=== PATIENT | female | born 1955 | race Caucasian/White ===

== ENCOUNTER 2019-04-10 05:23 | Emergency (ER) | payer OTHER, SELFPAY ==
--- NOTE | 2019-04-10 05:34 | ED_ITS ---
HPI - General Adult General Chief complaint: Wound/Laceration Stated complaint: left thumb laceration Time Seen by Provider: 04/10/19 05:25 Source: patient Mode of arrival: Ambulatory Limitations: no limitations History of Present Illness HPI narrative: 64-year-old female here for evaluation of a cut on the back of her left thumb. States that just prior to arrival she cut it on a serrated edge to a Saran wrap container. Bleeding immediately afterwards. Last tetanus shot was within the past 10 years. Related Data Home Medications Medication Instructions Recorded Confirmed levothyroxine [Synthroid] 25 mcg PO QDAY@0600 #0 01/08/12 Allergies Allergy/AdvReac Type Severity Reaction Status Date / Time PENICILLIN Allergy Unknown Uncoded 10/26/17 12:14 SULFA Allergy Unknown Uncoded 10/26/17 12:14 Review of Systems Musculoskeletal Musculoskeletal: Denies tingling Integumentary/Breasts Comments: Cut to the back of the left thumb Neurologic Neurologic: Denies tingling and Denies paresthesias Hematologic/Lymphatic Hematologic/Lymphatic: Denies easy bleeding and Denies easy bruising [facility] Medical History Hypothyroid (Acute) Social History Smoking Status: Never smoker Social History Smoking Status: Never smoker Exam Initial Vital Signs Initial Vital Signs: Vital Signs Temperature 98.5 F 04/10/19 05:41 Pulse Rate 61 04/10/19 05:41 Respiratory Rate 14 04/10/19 05:41 Blood Pressure 122/58 L 04/10/19 05:41 Pulse Oximetry 99 04/10/19 05:41 Cardio Pulses: radial pulses present on the left Skin Other: 2 cm laceration on the dorsum of the left thumb just proximal to the IP joint. Neuro Sensory Exam: no sensory deficits noted Extrem Other: Full range of motion of the MCP and IP joint to the left thumb Psych Appearance: grossly normal and well kempt Procedures Laceration Repair Laceration 1: Site: other (Left thumb) Side (If applicable): left Size (cm): 2 Description: linear and clean Depth: simple, single layer Local Anesthetic: lidocaine 1% Amount of anesthesia used (mL): 3 Pre-repair: wound explored, irrigated extensively and deep structures intact Skin layer closed with: nylon Size (cm): 4-0 Number of sutures: 3 Technique: simple, interrupted Orthopedic Splinting/Casting Injury #1: Side: left Upper Extremity Injury Location: finger (Thumb) Upper Extremity Immobilizer: finger (other) Post splinting neuro exam: intact Post splinting vascular exam: intact Placed by: Nursing Course Orders Ordered: Discontinued Medications Bacitracin (Bacitracin) 1 applic TOP NOW ONE Stop: 04/10/19 05:59 Lidocaine HCl (Xylocaine 1% (Pf)) 4 ml INJ NOW ONE Stop: 04/10/19 05:41 Vital Signs Vital signs: Vital Signs - 8 hr 04/10/19 05:41 Temperature 98.5 F Pulse Rate 61 Respiratory Rate 14 Blood Pressure 122/58 L Pulse Oximetry 99 Medical Decision Making MDM Narrative Medical decision making narrative: Neurovascular intact, up-to-date on tetanus, irrigated, no deep structure involvement, closed as described above, splint placed for comfort, given care instructions and return precautions. She expressed understanding and agreement with plan. Discharge Plan Departure Patient Disposition: Home Clinical Impression: Laceration Instructions: DI for Laceration Repair Activity Restrictions/Additional Instructions: I would leave the bandage on for the next 24 hours. The splint is for your comfort. After 24 hours you can wash your hand like normal. You can use soap and water like normal. The stitches do need to be removed in 7-10 days. Return to the emergency department for any new or worsening symptoms Prescriptions: No Action levothyroxine [Synthroid] 25 MCG tablet 25 mcg PO QDAY@0600 Qty: 0 RF: 0 Referrals: Renata Manzo MD [Primary Care Provider] -
[2019-04-10 05:41] VITALS: BP 122/58; PULSE 61; RESP 14; TEMP 36.9; O2SAT 99; BMI 22.3
[2019-04-10] MEDS: LIDOCAINE 1% (PF) 4 ML INJ (05:59)
[2019-04-10] MEDS: BACITRACIN OINT 0.9 GM PCKT 1 APPLIC TOP (06:01)
--- NOTE | 2019-04-10 06:14 | PC.NURSE ---
formable metal splint applied to left thumb to immobilize. Bacitracin and telfa placed on wound with three stitches placed by provider.
== END 2019-04-10 06:17 | disposition home or self-care (01) ==
PROVIDERS: Emergency Provider Emergency Medicine; PCP Internal Medicine
DX: S61.012A Laceration without foreign body of left thumb without damage to nail, initial encounter (principal); W26.8XXA Contact with other sharp object(s), not elsewhere classified, initial encounter
CPT/HCPCS: 12001; 29130; 99283

== ENCOUNTER 2021-07-17 12:35 | Emergency (ER) | payer OTHER, SELFPAY ==
[2021-07-17 12:40] VITALS: BP 174/79; PULSE 60; RESP 14; TEMP 36.8; O2SAT 99; BMI 22.3
[2021-07-17 13:00] LABS: COVID19 -Nasal RAPID POSITIVE (Negative)
--- NOTE | 2021-07-17 14:45 | ED.URI ---
HPI - URI/Sore Throat <DAGMAR Oquendo - Last Filed: 07/17/21 14:52> General Chief Complaint: Upper Respiratory Symptoms Stated Complaint: Wants COVID Test, Headache/Cough Time Seen by Provider: 07/17/21 14:37 Source: patient Mode of arrival: Ambulatory History of Present Illness HPI Narrative: 66-year-old female presents to the emergency department with 4 days of headache, congestion, cough, sneezing, fatigue and concern for COVID. Patient reports that she was likely exposed to Covid on 6 days ago, and her daughter tested positive yesterday. Patient received her [employer] vaccination approximately 6 months ago. She endorses that she went to work couple days ago but wore a mask the whole time. Patient denies any nausea vomiting, shortness of breath, difficulty breathing, wheezing, muscle aches, loss of sense of smell or taste, or any other symptoms. Related Data Home Medications Medication Instructions Recorded Confirmed levothyroxine 25 mcg tablet 25 mcg PO QDAY@0600 #0 01/08/12 (Synthroid) Allergies Allergy/AdvReac Type Severity Reaction Status Date / Time Penicillins Allergy Intermediate Chills Verified 07/17/21 12:44 Sulfa (Sulfonamide Allergy Intermediate Chills Verified 07/17/21 12:44 Antibiotics) Review of Systems <DAGMAR Oquendo - Last Filed: 07/17/21 14:52> Review of Systems Narrative: General: denies fever, chills, dizziness Head/Neck: Endorses headache, denies neck pain Eyes: denies visual changes, eye pain Cardio: denies chest pain, palpitations Respiratory: denies shortness of breath or wheezing, endorses cough, sneezing, congestion GI: denies abdominal pain, nausea, vomiting, or diarrhea : denies dysuria, hematuria MSK: denies joint pain, muscle weakness, denies muscle aches Skin: denies rash, itching Neuro: denies numbness, tingling Patient History <DAGMAR Oquendo - Last Filed: 07/17/21 14:52> Medical History Hypothyroid Social History Smoking Status: Never smoker Smoking Status: Never smoker alcohol intake frequency: 0-2 drinks per day Substance Use Type: marijuana Exam <DAGMAR Oquendo - Last Filed: 07/17/21 14:52> Narrative Exam Narrative: Independently reviewed vitals signs and nursing notes. General: Awake, alert, nontoxic, no cardiorespiratory distress Head/Neck: Atraumatic, neck full range of motion Eyes: EOMI, conjunctiva normal Nose: nares patent, no rhinorrhea Mouth/Throat: moist mucus membranes, no oral lesions Cardio: Regular rate and rhythm, no peripheral edema Respiratory: respirations unlabored without wheezing, stridor, or rales. No retractions. No hypoxia GI: Abdomen soft, nontender MSK: Moves all extremities, neurovascularly intact Skin: Normal capillary refill, no rash Neuro: Normal speech and cognition, normal gait Initial Vital Signs Initial Vital Signs: Vital Signs Temperature 98.3 F 07/17/21 12:40 Pulse Rate 60 07/17/21 12:40 Respiratory Rate 14 07/17/21 12:40 Blood Pressure 174/79 H 07/17/21 12:40 Pulse Oximetry 99 07/17/21 12:40 <Ara Parra DO - Last Filed: 07/19/21 14:51> Initial Vital Signs Initial Vital Signs: Vital Signs Temperature 98.3 F 07/17/21 12:40 Pulse Rate 60 07/17/21 12:40 Respiratory Rate 14 07/17/21 12:40 Blood Pressure 174/79 H 07/17/21 12:40 Pulse Oximetry 99 07/17/21 12:40 Course <DAGMAR Oquendo - Last Filed: 07/17/21 14:52> Orders Ordered: ED Orders 07/17/21 12:46 COVID19 -Nasal swab/Pre-Proc Stat Vital Signs Vital signs: Vital Signs - 8 hr 07/17/21 12:40 Temperature 98.3 F Pulse Rate 60 Respiratory Rate 14 Blood Pressure 174/79 H Pulse Oximetry 99 <Ara Parra DO - Last Filed: 07/19/21 14:51> Orders Ordered: ED Orders 07/17/21 12:46 COVID19 -Nasal swab/Pre-Proc Stat Vital Signs Vital signs: Vital Signs - 8 hr 07/17/21 12:40 Temperature 98.3 F Pulse Rate 60 Respiratory Rate 14 Blood Pressure 174/79 H Pulse Oximetry 99 MDM - URI/Sore Throat <DAGMAR Oquendo - Last Filed: 07/17/21 14:52> Lab Data Labs: Lab Results 07/17/21 Range/Units 12:46 SARS-CoV-2 (PCR) Positive H (Negative) MDM Narrative Medical decision making narrative: 66-year-old female otherwise healthy presents to the emergency department seeking a COVID test for known exposure on and symptoms which started 4 days ago including headache, congestion, cough, and fatigue. Patient's COVID test was positive. Her breath sounds were clear, she was not in any respiratory distress, pulse oximetry read 99-100%, no tachypnea, no adventitious breath sounds. Patient is vaccinated with [employer] vaccination as of January 2021. She has not had a booster. Patient understands to come back to the emergency department she has any worsening of her breathing, she was updated on the latest CDC guidelines and understands to follow-up with her primary care provider. Patient is appropriate and amenable to discharge home. Vital signs are stable on repeat examination is unremarkable. Patient has been informed of results. Patient has been given strict return to ER precautions for any new or worsening symptoms. Patient understands to follow up closely with outpatient providers as instructed. Patient understands plan and agrees to discharge home. All questions and concerns answered at this time. <Ara Parra DO - Last Filed: 07/19/21 14:51> Lab Data Labs: Lab Results 07/17/21 Range/Units 12:46 SARS-CoV-2 (PCR) Positive H (Negative) Discharge Plan Departure Patient Disposition: Home Clinical Impression: COVID-19, Upper respiratory infection Instructions: DI for COVID-19 (Suspected or Confirmed ) Activity Restrictions/Additional Instructions: Bianca, it was nice to meet you, sorry that your COVID test is positive. Please continue to wear mask for lungs you have symptoms and isolate yourself from others at least through tomorrow. I do recommend getting a booster vaccination in a couple of months, hopefully this will give you some added immunity against getting very sick if you were to get it again. Supportive care is the best he can do at home, Tylenol or ibuprofen is acceptable if you tolerate them well try to stay hydrated, avoid alcohol, and do the best you can. Please return to the emergency department if you have any difficulty breathing, or any other concerning symptoms. I hope you feel better soon. *What to do: *Please continue to take your regular medications as directed. [ ] New medication prescriptions sent to your pharmacy: [ ] [ ] New medication written as a paper prescription [ x] No new medications given *Please follow up with your primary care provider in 2-3 days, call for an appointment. Let them know you were seen in the Emergency Department and that we ask that you be seen in follow up. We will electronically transmit a record of today's note if your PCP is in our system *If you do not have a primary care provider please contact the [facility] Resource line at [phone]. They will ask some questions about your medical history and help get you set up with a doctor in the community. *Return to Emergency Department if you should have any new, worsening or concerning symptoms, such as [fever greater than 101F, chills, worsening pain, persistent vomiting or other bothersome symptoms] Prescriptions: No Action levothyroxine [Synthroid] 25 MCG tablet 25 mcg PO QDAY@0600 Qty: 0 0RF Referrals: Pat Ambrosio ARNP [Primary Care Provider] - <Ara Parra DO - Last Filed: 07/19/21 14:51> Cosign ED Attending Kulwinder Attestation: I was immediately available in the department for consultation. Documentation has been reviewed. I agree with assessment and plan.
== END 2021-07-17 15:08 | disposition home or self-care (01) ==
PROVIDERS: Emergency Medicine; Emergency Provider Nurse Practitioner Critical Care Medicine; PCP Nurse Practitioner
DX: U07.1 COVID-19 (principal); J06.9 Acute upper respiratory infection, unspecified
CPT/HCPCS: 87635; 99281; C9803

== ENCOUNTER → 2022-05-31 12:24 | Outpatient (CLI) | payer OTHER, SELFPAY ==
--- NOTE | 2022-05-31 12:25 | DI.RAD.S_ITS ---
PROCEDURE: XR KNEE RT 3V INDICATIONS: Right knee pain TECHNIQUE: 3 views of the knee were acquired. COMPARISON: None. FINDINGS: Bones: No fractures or dislocations. No suspicious bony lesions. There is mild tricompartmental periarticular osteophyte formation. Soft tissues: No joint effusion. No suspicious soft tissue calcifications. IMPRESSION: Osteoarthritis. No acute fracture. No osseous lesion. If symptoms and/or clinical suspicion for pathology persist, further assessment with repeat, or advanced imaging (e.g., CT, MRI, or bone scan) may be helpful for further assessment. Dictated by: Taisha Bruno M.D. on 05/31/2022 at 13:02 Approved by: Taisha Bruno M.D. on 05/31/2022 at 13:02
== END ==
PROVIDERS: PCP Nurse Practitioner; Referring Provider Physician Assistant Medical; Visit Provider Physician Assistant Medical
DX: M17.11 Unilateral primary osteoarthritis, right knee (principal); M25.561 Pain in right knee
CPT/HCPCS: 73562

== ENCOUNTER → 2022-07-16 09:48 | Outpatient (CLI) | payer OTHER, SELFPAY ==
--- NOTE | 2022-07-16 10:44 | DI.RAD.S_ITS ---
PROCEDURE: XR CHEST 2V INDICATIONS: flu sx 6 dy ago, persistent rattly dry cough, rhonchi bases TECHNIQUE: 2 views of the chest were acquired. COMPARISON: None. FINDINGS: Surgical changes and devices: None. Lungs and pleura: Lungs are clear. No pleural effusions or pneumothorax. Mediastinum: Mediastinal contours are normal. Heart size is normal. Bones and chest wall: No suspicious bony abnormalities. Soft tissues appear unremarkable. IMPRESSION: No acute cardiopulmonary abnormality. Dictated by: Anibal Funes M.D. on 07/16/2022 at 11:33 Approved by: Anibal Funes M.D. on 07/16/2022 at 11:33
[2022-07-16 11:08] LABS: Influenza A - CEPHEID Flu A POSITIVE (NEGATIVE); Influenza B - CEPHEID Flu B NEGATIVE (NEGATIVE); Respiratory Syncytial Virus Negative (Negative)
[2022-07-16 11:16] LABS: COVID-19 CEPHEID 4-PLEX PCR Negative (Negative)
== END ==
PROVIDERS: PCP Nurse Practitioner; Referring Provider Student in an Organized Health Care Education/Training Program; Visit Provider Student in an Organized Health Care Education/Training Program
DX: J06.9 Acute upper respiratory infection, unspecified (principal); R05.3 Chronic cough; R68.89 Other general symptoms and signs
CPT/HCPCS: 0241U; 71046